=== PATIENT | male | born 1985 | race Caucasian/White ===

== ENCOUNTER 2021-03-24 09:17 | Emergency (ER) | payer OTHER ==
[~2021-03-24] VITALS: Ht 180.3 cm; Wt 86.2 kg
[2021-03-24] MEDS ORDERED: ZOLOFT50 M1 PO (09:30)
[2021-03-24 10:04] LABS: CALCIUM 8.7 mg/dL (8.5-10.1); CREATININE 1.2 mg/dL (0.6-1.3); POTASSIUM 3.5 mmol/L (3.5-5.1)
[2021-03-24] MEDS ORDERED: TESSALON PERLE100 M1 PO (10:39)
[2021-03-24] MEDS ORDERED: ZOFRAN ODT4 MG DISSOLVE (10:39)
[2021-03-24 10:49] VITALS: BP 131/72
== END 2021-03-24 10:50 | disposition home or self-care (01) ==
LOC: M.ERS 09:17
PROVIDERS: Emergency Medicine Emergency Medical Services
DX: B34.9 Viral infection, unspecified (principal); Z20.822 Contact with and (suspected) exposure to COVID-19; F41.9 Anxiety disorder, unspecified; Z79.899 Other long term (current) drug therapy